=== PATIENT | female | born 2000 | race Hispanic/Latino ===

== ENCOUNTER 2018-06-18 15:34 | Emergency (ER) | payer OTHER ==
[2018-06-18] MEDS ORDERED: Acetaminophen 650 MG Suppository ONE (17:05)
[2018-06-18] MEDS ORDERED: Dexamethasone 4 mg/ml Vial ONE (17:05)
[2018-06-18] MEDS ORDERED: Acetaminophen 325 MG TAB ONE (17:06)
== END 2018-06-18 17:30 | disposition home or self-care (01) ==
LOC: ERS 15:34
DX: J02.0 Streptococcal pharyngitis (principal)
CPT/HCPCS: 87081; 87430; 87804; 99283; J1100

== ENCOUNTER 2019-01-05 19:20 | Emergency (ER) | payer SELFPAY ==
[2019-01-05] MEDS ORDERED: Ondansetron ODT 4 MG TAB ONE (20:44)
[2019-01-05] MEDS ORDERED: HYDROcodone/Acetaminophen 5/325 mg Tablet ONE (21:20)
== END 2019-01-05 21:39 | disposition home or self-care (01) ==
LOC: ERS 19:20
DX: S41.101A Unspecified open wound of right upper arm, initial encounter (principal); L02.411 Cutaneous abscess of right axilla; X58.XXXA Exposure to other specified factors, initial encounter
CPT/HCPCS: 10060; Q0162

== ENCOUNTER 2019-06-01 10:57 | Emergency (ER) | payer SELFPAY ==
[2019-06-01 12:03] LABS: #Eosinphils 0.1 thou/uL (0.0-0.7); #Monocytes 0.5 thou/uL (0.11-0.59); #Neutrophils 5.6 thou/uL (1.40-6.50); %Basophils 0.5 % (0.0-1.0); %Eosinophils 0.6 % (0.0-10.0); %Lymphocytes 24.1 % (21.0-51.0); %Monocytes 6.3 % (0.0-10.0); %Neutrophils 68.5 % (42.0-75.0); Hemoglobin 13.3 g/dL (12.0-16.0); Mean Corpuscular HGB CONC 32.6 g/dL (32.0-36.0); Mean Corpuscular Hemoglobin 32.8 pg (27.0-31.0); Mean Platelet Volume 7.8 fL (7.4-10.4); Platelet Count 270 thou/uL (130-400); RBC Distribution Width 11.5 % (11.5-14.5); Red Blood Cell (RBC) Count 4.04 mill/uL (4.20-5.40); White Blood Cell (WBC) Count 8.2 thou/uL (4.8-10.8)
[2019-06-01 12:11] LABS: Bilirubin Negative (Negative); Blood, Urine Negative (Negative); Clarity Clear (Clear); Glucose, Urine (Dipstick) Normal (Negative); Leukocyte Negative Leu/uL (Negative); Nitrite Negative (Negative); Protein, Urine (Dipstick) Negative (Neg-Trace); Urobilinogen Normal mg/dL (Less than 2)
--- NOTE | 2019-06-01 14:09 | ULT ---
US Pelvic Transvag W Doppler History: Pelvic pain Comparison: None. Findings: Real-time grayscale, color, and spectral analysis of the pelvis was performed transabdomina l and transvaginal approach. Trace free fluid within the pelvis. Uterus is normal. Right ovary measures 3.9 x 2.1 x 2.9 cm with a corpus luteum. Left ovary measures 2.7 x 1.1 x 1.8 cm. Adequate vascular flow to both ovaries. There is decidualization of the endometrium. Likely an early gestational sac with mean sac diameter 0 .41 cm. No yolk sac or pole is yet seen. Impression: Possible early intrauterine gestational sac without pole or yolk sac appreciated. G iven the hCG level, this may reflect an early . Close follow-up hCG and ultrasound is recommended.
== END 2019-06-01 15:28 | disposition home or self-care (01) ==
LOC: ERS 10:57
DX: O20.9 Hemorrhage in early pregnancy, unspecified (principal)
CPT/HCPCS: 36415; 76856; 81003; 84702; 85025; 86900; 86901

== ENCOUNTER 2019-08-21 11:27 | Emergency (ER) | payer OTHER, SELFPAY ==
[2019-08-21 12:34] LABS: #Lymphocytes 1.2 thou/uL (1.20-3.40); #Monocytes 0.7 thou/uL (0.11-0.59); #Neutrophils 7.8 thou/uL (1.40-6.50); %Basophils 0.5 % (0.0-1.0); %Eosinophils 0.4 % (0.0-10.0); %Lymphocytes 12.6 % (21.0-51.0); %Monocytes 6.9 % (0.0-10.0); %Neutrophils 79.5 % (42.0-75.0); Hemoglobin 12.3 g/dL (12.0-16.0); Mean Corpuscular HGB CONC 34.5 g/dL (32.0-36.0); Mean Corpuscular Hemoglobin 32.8 pg (27.0-31.0); Mean Corpuscular Volume 95.2 fL (78.0-98.0); Mean Platelet Volume 7.7 fL (7.4-10.4); Platelet Count 257 thou/uL (130-400); RBC Distribution Width 11.4 % (11.5-14.5); Red Blood Cell (RBC) Count 3.76 mill/uL (4.20-5.40); White Blood Cell (WBC) Count 9.8 thou/uL (4.8-10.8)
[2019-08-21 12:57] LABS: ALT (SGPT) 12 U/L (8-55); AST (SGOT) 15 U/L (5-34); Albumin 4.2 g/dL (3.5-5.0); Alkaline Phosphatase 66 U/L (40-110); Anion Gap 10 mmol/L (10-20); BUN (Urea Nitrogen) 4 mg/dL (7.0-18.7); Bilirubin, Total 0.4 mg/dL (0.2-1.2); Calc. Creatinine Clearance 0 mL/min (70-130); Calcium 9.4 mg/dL (7.8-10.44); Carbon Dioxide 27 mmol/L (22-29); Chloride 101 mmol/L (98-107); Estimated GFR-MDRD Greater than 90; Globulin 3.5 g/dL (2.4-3.5); Glucose 85 mg/dL (70-105); Lipase 12 U/L (8-78); Potassium 3.9 mmol/L (3.5-5.1); Protein, Total 7.7 g/dL (6.0-8.3); Sodium 134 mmol/L (136-145)
[2019-08-21] MEDS ORDERED: Ondansetron PF 4 MG/2 ML Vial ONE (13:42)
--- NOTE | 2019-08-21 14:27 | RAD ---
Exam: Chest one view HISTORY:Chest pain Comparison: 05/13/2008 FINDINGS: Cardiac silhouette: Normal Aorta: Unremarkable Pulmonary vessels: Normal Costophrenic angles: Clear LUNGS: No masses or consolidation. Pneumothorax: None Osseous abnormalities: None IMPRESSION: No acute cardiopulmonary process.
== END 2019-08-21 14:48 | disposition home or self-care (01) ==
LOC: ERS 11:27
DX: R07.89 Other chest pain (principal); Z79.82 Long term (current) use of aspirin
CPT/HCPCS: 71045; 80053; 83690; 84484; 85025; 93005; 94760; 96374; J2405